=== PATIENT | female | born 2000 | race Caucasian/White ===

== ENCOUNTER → 2021-08-13 | Outpatient (CLI) | payer BC ==
[2021-08-13 13:16] LABS: BASO % 0.3 % (0.0-1.0); EOS # 0.1 10^3/uL (0.0-0.5); EOS % 0.9 % (0.0-3.0); HEMATOCRIT 39.2 % (36.0-47.0); HEMOGLOBIN 13.1 g/dl (12.0-15.5); LYMPH # 1.5 10^3/uL (1.5-5.0); LYMPH % 15.7 % (24.0-44.0); MEAN CORPUSCULAR HEMOGLOBIN 27.8 pg (27.0-33.0); MEAN CORPUSCULAR HGB CONC 33.4 g/dl (32.0-36.5); MEAN CORPUSCULAR VOLUME 83.2 fl (80.0-96.0); MONO # 0.4 10^3/uL (0.0-0.8); MONO % 4.5 % (2.0-8.0); NEUTROPHILS # 7.3 10^3/uL (1.5-8.5); NEUTROPHILS % 78.2 % (36.0-66.0); PLATELET COUNT, AUTOMATED 178 10^3/uL (150-450); RED BLOOD COUNT 4.71 10^6/uL (4.00-5.40); WHITE BLOOD COUNT 9.3 10^3/uL (4.0-10.0)
[2021-08-13 14:41] LABS: GC DNA AMPLIFICATION NEGATIVE (NEGATIVE)
[2021-08-15 13:03] LABS: HIV 1&2 SCREEN CENTAUR NEGATIVE (NEGATIVE)
== END ==
LOC: M PLALAB 09:52
PROVIDERS: ATTEND Advanced Practice Midwife
DX: Z34.81 Encounter for supervision of other normal pregnancy, first trimester (principal); Z3A.00 Weeks of gestation of pregnancy not specified

== ENCOUNTER → 2021-10-19 | Outpatient (CLI) | payer BC | LOC: M WHC 14:21 | PROVIDERS: ATTEND Obstetrics & Gynecology | DX: Z36.89 Encounter for other specified antenatal screening (principal); Z3A.20 20 weeks gestation of pregnancy ==

== ENCOUNTER → 2021-11-22 | Outpatient (CLI) | payer BC ==
[2021-11-22 15:46] LABS: HEMATOCRIT 34.3 % (36.0-47.0); HEMOGLOBIN 11.3 g/dl (12.0-15.5); MEAN CORPUSCULAR HEMOGLOBIN 28.9 pg (27.0-33.0); MEAN CORPUSCULAR HGB CONC 32.9 g/dl (32.0-36.5); MEAN CORPUSCULAR VOLUME 87.7 fl (80.0-96.0); PLATELET COUNT, AUTOMATED 156 10^3/uL (150-450); RED BLOOD COUNT 3.91 10^6/uL (4.00-5.40); WHITE BLOOD COUNT 10.9 10^3/uL (4.0-10.0)
== END ==
LOC: M PLALAB 11:51
PROVIDERS: ATTEND Obstetrics & Gynecology
DX: O26.892 Other specified pregnancy related conditions, second trimester (principal)

== ENCOUNTER → 2022-01-09 | Outpatient (CLI) | payer BC ==
[2022-01-09 11:10] LABS: HEMATOCRIT 32.2 % (36.0-47.0); HEMOGLOBIN 10.7 g/dl (12.0-15.5); MEAN CORPUSCULAR HEMOGLOBIN 28.4 pg (27.0-33.0); MEAN CORPUSCULAR HGB CONC 33.2 g/dl (32.0-36.5); MEAN CORPUSCULAR VOLUME 85.4 fl (80.0-96.0); PLATELET COUNT, AUTOMATED 144 10^3/uL (150-450); RED BLOOD COUNT 3.77 10^6/uL (4.00-5.40); WHITE BLOOD COUNT 11.1 10^3/uL (4.0-10.0)
== END ==
LOC: M PLALAB 08:46
PROVIDERS: ATTEND Obstetrics & Gynecology
DX: O99.113 Other diseases of the blood and blood-forming organs and certain disorders involving the immune mechanism complicating pregnancy, third trimester (principal)

== ENCOUNTER → 2022-02-06 | Outpatient (REF) | payer BC | LOC: M SFHCWAGY 02-05 09:52 | PROVIDERS: ATTEND Specialist | DX: Z34.83 Encounter for supervision of other normal pregnancy, third trimester (principal); Z36.85 Encounter for antenatal screening for Streptococcus B ==

== ENCOUNTER 2022-03-10 04:23 | Inpatient (IN) | payer BC ==
[2022-03-10] VITALS (36 sets, daily range): BP systolic 111–160; BP diastolic 55–93
[~2022-03-10] VITALS: Ht 149.9 cm; Wt 69.2 kg
[2022-03-10] MEDS ORDERED: PRENTAB9 PO (04:37)
[2022-03-10] MEDS ORDERED: OMEP10CASR PO (04:37)
[2022-03-10] MEDS ORDERED: OMEP40CA4 PO (05:37)
[2022-03-10 05:41] LABS: HEMATOCRIT 36.7 % (36.0-47.0); MEAN CORPUSCULAR HEMOGLOBIN 27.3 pg (27.0-33.0); MEAN CORPUSCULAR HGB CONC 32.7 g/dl (32.0-36.5); MEAN CORPUSCULAR VOLUME 83.6 fl (80.0-96.0); PLATELET COUNT, AUTOMATED 141 10^3/uL (150-450); RED BLOOD COUNT 4.39 10^6/uL (4.00-5.40); WHITE BLOOD COUNT 12.4 10^3/uL (4.0-10.0)
[2022-03-10] MEDS ORDERED: LACTATED RINGER'S 1000 ML IV STA (09:09)
[2022-03-10] MEDS ORDERED: TRANEXAMIC ACID INJection 1,000 MG in NS 100 ML IV PRN (09:10)
[2022-03-10] MEDS ORDERED: LIDOCAINE 1% MDV 20ML VIAL INFIL PRN (09:10)
[2022-03-10] MEDS ORDERED: CARBOPROST TROMETHAMINE 250 MCG/ML AMP IM PRN (09:10)
[2022-03-10] MEDS ORDERED: METHYLERGONOVINE MALEATE 0.2 MG/ML VIAL (J2210) IM PRN (09:10)
[2022-03-10] MEDS ORDERED: LR 1,000 ML IV SCH ×2 (09:10→15:00)
[2022-03-10] MEDS ORDERED: OXYTOCIN DRIP 30 UNITS in IV 1 EA IV PRN (09:10)
[2022-03-10] MEDS ORDERED: EPIDURAL/PCA KEYS XX PRN (09:50)
[2022-03-10] MEDS ORDERED: FENTANYL/ROPIVACAINE/NACL BAG 100 ML EPIDURAL SCH (09:50)
[2022-03-10] MEDS ORDERED: diphenhydrAMINE 50MG/ML VIAL (J1200) IV PRN (09:50)
[2022-03-10] MEDS ORDERED: NALOXONE INJ 0.4MG/1ML VIAL (J2310 PER 1MG) IV PRN (09:50)
[2022-03-10] MEDS ORDERED: ePHEDrine SULFATE 25 MG/5 ML(5MG/ML) SYRINGE IVP PRN (09:50)
[2022-03-10] MEDS ORDERED: LR 500 ML IV PRN (09:50)
[2022-03-10] MEDS ORDERED: FENTANYL 2MCG/ML ROPIVACAINE 0.2% IN 0.9% NACL 100ML IVBAG As Ordered ONE (09:50)
[2022-03-10] MEDS ORDERED: ONDANSETRON 4MG 2ML VIAL IV PRN ×2 (09:50→15:00)
[2022-03-10] MEDS ORDERED: OXYTOCIN DRIP 30 UNITS in IV 1 EA IV SCH ×2 (12:00→15:15)
[2022-03-10 14:46] LABS: CORD GAS ABE A -5.2; CORD GAS HCO3 A 24.1 MEQ/L; CORD GAS O2 SAT A 51.6 %; CORD GAS PCO2 A 62.1 mmHg; CORD GAS PH A 7.206 UNITS; CORD GAS PO2 A 23.9 mmHg; CORD GAS SBC A 19.1 MEQ/L
[2022-03-10 14:47] LABS: CORD GAS ABE V -5.5; CORD GAS HCO3 V 21.5 MEQ/L; CORD GAS O2 SAT V 76.3 %; CORD GAS PCO2 V 47.3 mmHg; CORD GAS PH V 7.276 UNITS; CORD GAS PO2 V 35.5 mmHg; CORD GAS SBC V 19.5 MEQ/L
[2022-03-10] MEDS ORDERED: IBUPROFEN 600MG TAB PO PRN (15:00)
[2022-03-10] MEDS ORDERED: ACETAMINOPHEN 500 MG TAB PO PRN (15:00)
[2022-03-10] MEDS ORDERED: METHYLERGONOVINE MALEATE 0.2 MG TAB PO PRN (15:00)
[2022-03-10] MEDS ORDERED: DOCUSATE SODIUM 100MG CAPSULE PO PRN (15:00)
[2022-03-10] MEDS ORDERED: DIBUCAINE 1% OINTMENT 30GM TOP PRN (15:00)
[2022-03-10] MEDS ORDERED: RHOGAM 300 MCG (1500 IU) INJ (J2790) IM SCH (15:00)
[2022-03-10] MEDS ORDERED: ACETAMINOPHEN TAB 650MG DOSE (2X325MG) PO PRN (15:00)
[2022-03-10] MEDS ORDERED: CALCIUM CARBONATE 500 MG CHEW U/D PO SCH (16:00)
[2022-03-10] MEDS: IBUPROFEN 800 MG TAB PO PRN (17:40)
[2022-03-11] MEDS: IBUPROFEN 800 MG TAB PO PRN (02:17)
[2022-03-11 06:50] VITALS: BP 117/78
[2022-03-11] MEDS ORDERED: PRENATAL VITAMINS CHEWABLE TABLET PO SCH (09:00)
[2022-03-11] MEDS ORDERED: ACET-683 PO (15:25)
[2022-03-11] MEDS ORDERED: IBUP80TA PO (15:25)
[2022-03-12] MEDS ORDERED: MEASLES,MUMPS,RUBELLA VACCINE INJ (MMR-II) (90707) SC.IMMUN ONE (09:00)
== END 2022-03-11 16:17 | disposition home or self-care (01) | DRG 560 ==
LOC: M LDO 04:23 → M LDI 05:26 → M OBS 17:22
PROVIDERS: ADMIT Obstetrics & Gynecology; ATTEND Obstetrics & Gynecology
PROC: 10E0XZZ Delivery of Products of Conception, External Approach (ICD-10-PCS; principal; 2022-03-10)
PROC: 0KQM0ZZ Repair Perineum Muscle, Open Approach (ICD-10-PCS; 2022-03-10)
DX: O48.0 Post-term pregnancy (principal); Z37.0 Single live birth; Z3A.40 40 weeks gestation of pregnancy; D69.6 Thrombocytopenia, unspecified; O99.12 Other diseases of the blood and blood-forming organs and certain disorders involving the immune mechanism complicating childbirth; K21.9 Gastro-esophageal reflux disease without esophagitis; O99.62 Diseases of the digestive system complicating childbirth; Z79.899 Other long term (current) drug therapy; O70.1 Second degree perineal laceration during delivery

== ENCOUNTER → 2022-06-18 | Outpatient (REF) | payer BC ==
[~2022-06-18] MED LIST: ACET-683 PO; IBUP80TA PO; OMEP10CASR PO; OMEP40CA4 PO; PRENTAB9 PO
== END ==
LOC: M SFHCWAGY 13:19
PROVIDERS: ATTEND Obstetrics & Gynecology
DX: N84.3 Polyp of vulva (principal); N90.89 Other specified noninflammatory disorders of vulva and perineum

== ENCOUNTER → 2022-08-23 | Outpatient (REF) | payer BC ==
[2022-08-23 19:17] LABS: GC DNA AMPLIFICATION NEGATIVE (NEGATIVE)
== END ==
LOC: M SFHCWAGY 17:20
PROVIDERS: ATTEND Obstetrics & Gynecology
DX: N72 Inflammatory disease of cervix uteri (principal); Z12.4 Encounter for screening for malignant neoplasm of cervix; Z11.3 Encounter for screening for infections with a predominantly sexual mode of transmission
CPT/HCPCS: 87661; 87810; 87850; G0123

== ENCOUNTER → 2022-09-12 | Outpatient (REF) ==
[2022-09-12 13:56] LABS: RSV AMPLIFICATION NEGATIVE (NEGATIVE)
== END ==
LOC: M EMP 11:54
PROVIDERS: ATTEND Family Medicine
DX: Z20.822 Contact with and (suspected) exposure to COVID-19 (principal)

== ENCOUNTER → 2022-11-20 | Outpatient (REF) | LOC: M EMP 08:40 | PROVIDERS: ATTEND Family Medicine | DX: Z11.52 Encounter for screening for COVID-19 (principal) ==

== ENCOUNTER 2023-05-15 11:44 | Emergency (ER) | payer BC ==
[~2023-05-15] VITALS: Ht 149.9 cm; Wt 61.3 kg
[2023-05-15] MEDS ORDERED: PROM12.54 PR (12:00)
[2023-05-15] MEDS ORDERED: ONDA-83 (12:00)
[2023-05-15 12:33] LABS: HEMATOCRIT 40.7 % (36.0-47.0); HEMOGLOBIN 13.7 g/dl (12.0-15.5); MEAN CORPUSCULAR HEMOGLOBIN 28.6 pg (27.0-33.0); MEAN CORPUSCULAR HGB CONC 33.7 g/dl (32.0-36.5); PLATELET COUNT, AUTOMATED 168 10^3/uL (150-450); RED BLOOD COUNT 4.79 10^6/uL (4.00-5.40); WHITE BLOOD COUNT 11.5 10^3/uL (4.0-10.0)
[2023-05-15 13:08] LABS: BLOOD UREA NITROGEN 14 MG/DL (9-23); CALCIUM LEVEL 8.7 MG/DL (8.5-10.1); CARBON DIOXIDE LEVEL 23 MMOL/L (20-31); CHLORIDE LEVEL 103 MMOL/L (98-107); GLOMERULAR FILTRATION RATE > 60.0 (>60); GLUCOSE, FASTING 86 MG/DL (60-100); POTASSIUM SERUM 4.1 MMOL/L (3.5-5.1); SODIUM LEVEL 136 MMOL/L (136-145)
[2023-05-15] MEDS ORDERED: METOCLOPRAMIDE INJ 10MG/2ML VIAL IV ONE (13:10)
[2023-05-15] MEDS ORDERED: NS 1,000 ML IV ONE (14:20)
[2023-05-15] MEDS ORDERED: REGL10TA6 PO (15:18)
[2023-05-15 16:41] VITALS: BP 124/63; TEMP 96.9; O2SAT 96
== END 2023-05-15 16:44 | disposition home or self-care (01) ==
LOC: M ED 11:44
DX: O21.1 Hyperemesis gravidarum with metabolic disturbance (principal); Z3A.09 9 weeks gestation of pregnancy; Z79.83 Long term (current) use of bisphosphonates; Z79.810 Long term (current) use of selective estrogen receptor modulators (SERMs); Z79.899 Other long term (current) drug therapy
CPT/HCPCS: 76801; 80048; 81001; 84702; 85027; 86850; 86900; 86901; 96361; 96374; 99284; J2765

== ENCOUNTER → 2023-05-29 | Outpatient (CLI) | payer BC ==
[~2023-05-29] MED LIST changes: +ONDA-83; +PROM12.54 PR; +REGL10TA6 PO
[2023-05-29 11:34] LABS: HEMATOCRIT 39.9 % (36.0-47.0); HEMOGLOBIN 13.2 g/dl (12.0-15.5); MEAN CORPUSCULAR HGB CONC 33.1 g/dl (32.0-36.5); MEAN CORPUSCULAR VOLUME 84.7 fl (80.0-96.0); PLATELET COUNT, AUTOMATED 189 10^3/uL (150-450); RED BLOOD COUNT 4.71 10^6/uL (4.00-5.40); WHITE BLOOD COUNT 7.8 10^3/uL (4.0-10.0)
[2023-05-29 12:25] LABS: HIV 1&2 SCREEN NEGATIVE (NEGATIVE)
[2023-05-29 12:31] LABS: HEPATITIS C VIRUS ABY INDEX 0.09 INDEX (<0.8)
[2023-05-29 13:08] LABS: CHLAMYDIA DNA AMPLIFICATION NEGATIVE (NEGATIVE); GC DNA AMPLIFICATION NEGATIVE (NEGATIVE)
== END ==
LOC: M PLALAB 07:30
PROVIDERS: ATTEND Advanced Practice Midwife
DX: Z34.81 Encounter for supervision of other normal pregnancy, first trimester (principal)

== ENCOUNTER → 2023-06-17 | Outpatient (REF) | payer BC | LOC: M PLALAB 09:12 | PROVIDERS: ATTEND Obstetrics & Gynecology | DX: R82.90 Unspecified abnormal findings in urine (principal) ==

== ENCOUNTER → 2023-06-29 | Outpatient (REF) | LOC: M EMP 12:54 | PROVIDERS: ATTEND Family Medicine | DX: Z53.9 Procedure and treatment not carried out, unspecified reason (principal) ==

== ENCOUNTER → 2023-07-10 | Outpatient (REF) | LOC: M EMP 09:48 | PROVIDERS: ATTEND Family Medicine | DX: Z11.52 Encounter for screening for COVID-19 (principal) ==

== ENCOUNTER → 2023-07-29 | Outpatient (CLI) | payer BC | LOC: M WHC 07:04 | PROVIDERS: ATTEND Advanced Practice Midwife | DX: Z34.82 Encounter for supervision of other normal pregnancy, second trimester (principal); Z3A.19 19 weeks gestation of pregnancy ==

== ENCOUNTER → 2023-09-12 | Outpatient (CLI) | payer BC ==
[2023-09-12 13:49] LABS: HEMATOCRIT 32.9 % (36.0-47.0); HEMOGLOBIN 10.7 g/dl (12.0-15.5); MEAN CORPUSCULAR HEMOGLOBIN 27.9 pg (27.0-33.0); MEAN CORPUSCULAR HGB CONC 32.5 g/dl (32.0-36.5); MEAN CORPUSCULAR VOLUME 85.9 fl (80.0-96.0); PLATELET COUNT, AUTOMATED 140 10^3/uL (150-450); RED BLOOD COUNT 3.83 10^6/uL (4.00-5.40); WHITE BLOOD COUNT 10.9 10^3/uL (4.0-10.0)
== END ==
LOC: M PLALAB 09:46
PROVIDERS: ATTEND Obstetrics & Gynecology
DX: Z34.92 Encounter for supervision of normal pregnancy, unspecified, second trimester (principal)

== ENCOUNTER 2023-10-08 20:42 | Outpatient (CLI) | payer BC ==
[~2023-10-08] VITALS: Ht 149.9 cm; Wt 72.4 kg
[2023-10-08 20:51] VITALS: BP 136/86
[2023-10-08] MEDS: ONDANSETRON 4MG ORAL DISINTEGRATING TAB PO ONE (21:28)
== END 2023-10-08 21:35 | disposition home or self-care (01) ==
LOC: M LDO 20:42
PROVIDERS: ATTEND Advanced Practice Midwife
DX: O47.03 False labor before 37 completed weeks of gestation, third trimester (principal); O99.613 Diseases of the digestive system complicating pregnancy, third trimester; R19.7 Diarrhea, unspecified; O21.9 Vomiting of pregnancy, unspecified; Z3A.29 29 weeks gestation of pregnancy
CPT/HCPCS: 59025; G0463

== ENCOUNTER 2023-10-09 07:18 | Outpatient (CLI) | payer BC ==
[~2023-10-09] VITALS: Ht 149.9 cm; Wt 72.4 kg
[2023-10-09 07:34] VITALS: BP 125/73
[2023-10-09] MEDS ORDERED: HOME MED LIST COMPLETE! XX SCH (07:35)
[2023-10-09] MEDS: LACTATED RINGER'S 1000 ML IV STA (08:05)
[2023-10-09 08:20] LABS: HEMATOCRIT 31.8 % (36.0-47.0); HEMOGLOBIN 10.6 g/dl (12.0-15.5); MEAN CORPUSCULAR HEMOGLOBIN 27.7 pg (27.0-33.0); MEAN CORPUSCULAR HGB CONC 33.3 g/dl (32.0-36.5); PLATELET COUNT, AUTOMATED 151 10^3/uL (150-450); RED BLOOD COUNT 3.83 10^6/uL (4.00-5.40); WHITE BLOOD COUNT 14.8 10^3/uL (4.0-10.0)
[2023-10-09 08:24] VITALS: BP 120/66
[2023-10-09] MEDS: LR 1,000 ML IV SCH (09:06)
[2023-10-09 09:56] VITALS: BP 127/78
== END 2023-10-09 11:09 | disposition home or self-care (01) ==
LOC: M LDO 07:18
PROVIDERS: ATTEND Specialist
DX: O60.03 Preterm labor without delivery, third trimester (principal); Z3A.29 29 weeks gestation of pregnancy
CPT/HCPCS: 59025; 85027; G0463

== ENCOUNTER 2023-11-04 09:13 | Outpatient (CLI) | payer BC ==
[~2023-11-04] VITALS: Ht 149.9 cm; Wt 73.6 kg
[2023-11-04 10:27] LABS: HEMATOCRIT 32.3 % (36.0-47.0); HEMOGLOBIN 10.5 g/dl (12.0-15.5); MEAN CORPUSCULAR HEMOGLOBIN 26.3 pg (27.0-33.0); MEAN CORPUSCULAR HGB CONC 32.5 g/dl (32.0-36.5); MEAN CORPUSCULAR VOLUME 80.8 fl (80.0-96.0); PLATELET COUNT, AUTOMATED 140 10^3/uL (150-450); WHITE BLOOD COUNT 12.1 10^3/uL (4.0-10.0)
[2023-11-04 10:59] LABS: BLOOD UREA NITROGEN 8 MG/DL (9-23); CALCIUM LEVEL 8.7 MG/DL (8.5-10.1); CARBON DIOXIDE LEVEL 24 MMOL/L (20-31); CHLORIDE LEVEL 106 MMOL/L (98-107); CREATININE FOR GFR 0.52 MG/DL (0.55-1.30); GLOMERULAR FILTRATION RATE > 60.0 (>60); GLUCOSE, FASTING 81 MG/DL (60-100); MAGNESIUM LEVEL 1.8 MG/DL (1.8-2.4); SODIUM LEVEL 137 MMOL/L (136-145)
[2023-11-04 11:01] LABS: THYROID STIMULATING HORMONE 1.039 uIU/ML (0.55-4.78)
[2023-11-04 11:02] LABS: FREE T4 0.89 NG/DL (0.89-1.76)
[2023-11-04 13:08] VITALS: BP 128/59
[2023-11-04] MEDS ORDERED: HOME MED LIST COMPLETE! XX SCH (13:40)
== END 2023-11-04 14:30 | disposition home or self-care (01) ==
LOC: M LDO 09:13
PROVIDERS: ATTEND Obstetrics & Gynecology
DX: O26.893 Other specified pregnancy related conditions, third trimester (principal); R00.2 Palpitations; O99.013 Anemia complicating pregnancy, third trimester; D50.9 Iron deficiency anemia, unspecified; Z3A.33 33 weeks gestation of pregnancy
CPT/HCPCS: 36415; 59025; 80048; 83735; 84439; 84443; 85027; 93005; 93306; G0463

== ENCOUNTER → 2023-11-20 | Outpatient (REF) | payer BC | LOC: M SFHCWAGY 14:51 | PROVIDERS: ATTEND Specialist | DX: R31.9 Hematuria, unspecified (principal) ==

== ENCOUNTER → 2023-11-26 | Outpatient (REF) | payer BC | LOC: M SFHCWAGY 12:33 | PROVIDERS: ATTEND Obstetrics & Gynecology | DX: O99.419 Diseases of the circulatory system complicating pregnancy, unspecified trimester (principal); Z3A.00 Weeks of gestation of pregnancy not specified ==

== ENCOUNTER → 2023-11-26 | Outpatient (CLI) | payer BC | LOC: M WHC 11:29 | PROVIDERS: ATTEND Obstetrics & Gynecology | DX: O26.843 Uterine size-date discrepancy, third trimester (principal); Z3A.36 36 weeks gestation of pregnancy; O36.5930 Maternal care for other known or suspected poor fetal growth, third trimester, not applicable or unspecified ==

== ENCOUNTER → 2023-11-26 | Outpatient (CLI) | payer BC ==
[2023-11-26 15:28] LABS: HEMATOCRIT 33.4 % (36.0-47.0); HEMOGLOBIN 10.5 g/dl (12.0-15.5); MEAN CORPUSCULAR HEMOGLOBIN 25.2 pg (27.0-33.0); MEAN CORPUSCULAR HGB CONC 31.4 g/dl (32.0-36.5); MEAN CORPUSCULAR VOLUME 80.1 fl (80.0-96.0); PLATELET COUNT, AUTOMATED 173 10^3/uL (150-450); RED BLOOD COUNT 4.17 10^6/uL (4.00-5.40); WHITE BLOOD COUNT 11.7 10^3/uL (4.0-10.0)
== END ==
LOC: M PLALAB 12:39
PROVIDERS: ATTEND Obstetrics & Gynecology
DX: D69.6 Thrombocytopenia, unspecified (principal)

== ENCOUNTER 2023-12-01 17:08 | Inpatient (IN) | payer BC ==
[~2023-12-01] VITALS: Ht 149.9 cm; Wt 74.5 kg
[2023-12-01] VITALS (7 sets, daily range): BP systolic 106–130; BP diastolic 55–76; O2SAT 97
[~2023-12-01 17:08] MED LIST changes: -PROP10TA56 PO; -TUMS500C PO
[2023-12-01] MEDS ORDERED: LACTATED RINGER'S 1000 ML IV STA (17:29)
[2023-12-01] MEDS ORDERED: METHYLERGONOVINE MALEATE 0.2MG/ML 1ML VIAL IM PRN (17:30)
[2023-12-01] MEDS ORDERED: OXYTOCIN INJ 10UNITS/ML 1ML VIAL IM PRN (17:30)
[2023-12-01] MEDS ORDERED: CARBOPROST TROMETHAMINE 250 MCG/ML AMP IM PRN (17:30)
[2023-12-01] MEDS ORDERED: LIDOCAINE 1% MDV 20ML VIAL INFIL PRN (17:30)
[2023-12-01] MEDS ORDERED: TRANEXAMIC ACID INJection 1,000 MG in NS 100 ML IV PRN (17:30)
[2023-12-01] MEDS ORDERED: PROP10TA56 PO (17:32)
[2023-12-01] MEDS ORDERED: TUMS500C PO (17:34)
[2023-12-01] MEDS ORDERED: HOME MED LIST COMPLETE! XX SCH (17:35)
[2023-12-01 18:03] LABS: HEMATOCRIT 29.8 % (36.0-47.0); HEMOGLOBIN 9.9 g/dl (12.0-15.5); MEAN CORPUSCULAR HEMOGLOBIN 26.3 pg (27.0-33.0); MEAN CORPUSCULAR HGB CONC 33.2 g/dl (32.0-36.5); PLATELET COUNT, AUTOMATED 181 10^3/uL (150-450); RED BLOOD COUNT 3.77 10^6/uL (4.00-5.40); WHITE BLOOD COUNT 14.3 10^3/uL (4.0-10.0)
[2023-12-01 19:13] LABS: HEPATITIS C VIRUS ABY INDEX < 0.02 INDEX (<0.8)
[2023-12-01] MEDS: miSOPROStol 50MCG 1/2 TABLET PO ONE (19:29)
[2023-12-01] MEDS: PROPRANOLOL 10 MG TAB PO SCH (20:34)
[2023-12-01] MEDS: OXYTOCIN DRIP 30 UNITS in IV 1 EA IV SCH (23:26)
[2023-12-01] MEDS: LR 1,000 ML IV SCH (23:26)
[2023-12-02] VITALS (23 sets, daily range): BP systolic 91–129; BP diastolic 53–87
[2023-12-02] MEDS: OXYTOCIN DRIP 30 UNITS in IV 1 EA IV PRN (09:43)
[2023-12-02] MEDS ORDERED: DIBUCAINE 1% OINTMENT 30GM TOP PRN (11:10)
[2023-12-02] MEDS ORDERED: DOCUSATE SODIUM 100MG CAPSULE PO PRN (11:10)
[2023-12-02] MEDS ORDERED: ACETAMINOPHEN TAB 650MG DOSE (2X325MG) PO PRN (11:10)
[2023-12-02] MEDS ORDERED: METHYLERGONOVINE MALEATE 0.2 MG TAB PO PRN (11:10)
[2023-12-02] MEDS ORDERED: IBUPROFEN 600MG TAB PO PRN (11:10)
[2023-12-02] MEDS ORDERED: ACETAMINOPHEN 500 MG TAB PO PRN (11:10)
[2023-12-02] MEDS: IBUPROFEN 800 MG TAB PO PRN (11:17)
[2023-12-02] MEDS ORDERED: PROPRANOLOL 10 MG TAB PO SCH (21:00)
[2023-12-03 06:00] VITALS: BP 106/59; O2SAT 97
[2023-12-03] MEDS: RHO(D) IMMUNE GLOBULIN/MALTOSE 500MCG(2500IU)/2.2ML VIAL (WINRHO) IM SCH (07:10)
[2023-12-03] MEDS: PRENATAL VITAMINS CHEWABLE TABLET PO SCH (09:00)
[2023-12-03] MEDS: MEASLES,MUMPS,RUBELLA VACCINE INJ (MMR-II) SC.IMMUN ONE (10:09)
== END 2023-12-03 19:10 | disposition home or self-care (01) | DRG 560 ==
LOC: M LDI 17:08 → M OBS 12-02 11:25
PROVIDERS: ADMIT Advanced Practice Midwife; ATTEND Advanced Practice Midwife
PROC: 3E0P7VZ Introduction of Hormone into Female Reproductive, Via Natural or Artificial Opening (ICD-10-PCS; 2023-12-01)
PROC: 3E033VJ Introduction of Other Hormone into Peripheral Vein, Percutaneous Approach (ICD-10-PCS; 2023-12-01)
PROC: 10E0XZZ Delivery of Products of Conception, External Approach (ICD-10-PCS; principal; 2023-12-02)
PROC: 10907ZC Drainage of Amniotic Fluid, Therapeutic from Products of Conception, Via Natural or Artificial Opening (ICD-10-PCS; 2023-12-02)
DX: O36.5930 Maternal care for other known or suspected poor fetal growth, third trimester, not applicable or unspecified (principal); O99.42 Diseases of the circulatory system complicating childbirth; I47.10 Supraventricular tachycardia, unspecified; Z37.0 Single live birth; Z3A.36 36 weeks gestation of pregnancy; Z79.899 Other long term (current) drug therapy; Z86.16 Personal history of COVID-19

== ENCOUNTER → 2023-12-01 | Outpatient (CLI) | payer BC ==
[~2023-12-01] MED LIST changes: +PROP10TA56 PO; +TUMS500C PO
== END ==
LOC: M WHC 13:56
PROVIDERS: ATTEND Obstetrics & Gynecology
DX: O36.5993 Maternal care for other known or suspected poor fetal growth, unspecified trimester, fetus 3 (principal); Z3A.36 36 weeks gestation of pregnancy

== ENCOUNTER → 2024-05-10 | Outpatient (REF) ==
[~2024-05-10] MED LIST changes: +PROP10TA56 PO; +TUMS500C PO
== END ==
LOC: M EMP 08:15
PROVIDERS: ATTEND Family Medicine
DX: Z11.52 Encounter for screening for COVID-19 (principal)

== ENCOUNTER → 2024-06-24 | Outpatient (CLI) | payer BC ==
[2024-06-24 17:25] LABS: BASO # 0.1 10^3/uL (0.0-0.2); BASO % 0.7 % (0.0-1.0); EOS # 0.2 10^3/uL (0.0-0.5); EOS % 2.5 % (0.0-3.0); HEMATOCRIT 40.2 % (36.0-47.0); HEMOGLOBIN 13.2 g/dl (12.0-15.5); LYMPH # 2.1 10^3/uL (1.5-5.0); LYMPH % 29.1 % (24.0-44.0); MEAN CORPUSCULAR HEMOGLOBIN 27.7 pg (27.0-33.0); MEAN CORPUSCULAR HGB CONC 32.8 g/dl (32.0-36.5); MEAN CORPUSCULAR VOLUME 84.3 fl (80.0-96.0); MONO # 0.5 10^3/uL (0.0-0.8); MONO % 6.2 % (2.0-8.0); NEUTROPHILS # 4.5 10^3/uL (1.5-8.5); NEUTROPHILS % 61.4 % (36.0-66.0); PLATELET COUNT, AUTOMATED 217 10^3/uL (150-450); RED BLOOD COUNT 4.77 10^6/uL (4.00-5.40); WHITE BLOOD COUNT 7.3 10^3/uL (4.0-10.0)
[2024-06-24 17:40] LABS: IRON (FE) 45 UG/DL (50-170)
[2024-06-24 17:41] LABS: ALBUMIN 4.1 G/DL (3.2-5.2); ALKALINE PHOSPHATASE 107 U/L (35-104); ALT/SGPT 16 U/L (7.0-40); AST/SGOT 11 U/L (<34); BILIRUBIN,TOTAL 0.9 MG/DL (0.3-1.2); BLOOD UREA NITROGEN 13 MG/DL (9-23); CALCIUM LEVEL 9.4 MG/DL (8.5-10.1); CARBON DIOXIDE LEVEL 28 MMOL/L (20-31); CHLORIDE LEVEL 106 MMOL/L (98-107); CREATININE FOR GFR 0.65 MG/DL (0.55-1.30); GLOMERULAR FILTRATION RATE > 60.0 (>60); GLUCOSE, FASTING 81 MG/DL (60-100); MAGNESIUM LEVEL 2.2 MG/DL (1.8-2.4); PERCENT SATURATION 13.1 % (13.2-45.0); POTASSIUM SERUM 4.4 MMOL/L (3.5-5.1); SODIUM LEVEL 141 MMOL/L (136-145); TOTAL IRON BINDING CAPACITY 344 UG/DL (250-425); TOTAL PROTEIN 7.7 G/DL (5.7-8.2)
[2024-06-24 17:43] LABS: FERRITIN 19.6 NG/ML (7.3-270.7); THYROID STIMULATING HORMONE 1.332 uIU/ML (0.55-4.78)
== END ==
LOC: M LAB 16:46
PROVIDERS: ATTEND Internal Medicine
DX: E78.5 Hyperlipidemia, unspecified (principal)

== ENCOUNTER → 2024-08-23 | Outpatient (REF) | LOC: M EMP 10:06 | PROVIDERS: ATTEND Family Medicine | DX: Z01.89 Encounter for other specified special examinations (principal) ==

== ENCOUNTER → 2024-12-20 | Outpatient (REF) | payer BC ==
[2024-12-20 13:10] LABS: IRON (FE) 116.0 UG/DL (50-170); PERCENT SATURATION 35.4 % (13.2-45.0)
== END ==
LOC: M LAB REF 12:04
PROVIDERS: ATTEND Internal Medicine
DX: E61.1 Iron deficiency (principal)

== ENCOUNTER → 2025-01-11 | Outpatient (CLI) | payer BC | LOC: M RAD 16:46 | PROVIDERS: ATTEND Internal Medicine | DX: M79.642 Pain in left hand (principal); M25.532 Pain in left wrist ==